=== PATIENT | female | born 1990 | race Caucasian/White ===

== ENCOUNTER 2018-01-03 09:02 | Emergency (ER) | payer OTHER ==
[~2018-01-03] VITALS: Ht 172.7 cm; Wt 61.7 kg
[2018-01-03 09:11] VITALS: BP 126/76
== END 2018-01-03 12:18 | disposition home or self-care (01) ==
LOC: ED 10:48
DX: O20.0 Threatened abortion (principal); O34.81 Maternal care for other abnormalities of pelvic organs, first trimester; Z3A.01 Less than 8 weeks gestation of pregnancy
CPT/HCPCS: 36415; 76801; 84702; 86901; 99285